=== PATIENT | female | born 1990 | race Caucasian/White ===

== ENCOUNTER 2020-10-16 14:24 | Observation (INO) | payer OTHER, SELFPAY ==
[2020-10-16 14:49] VITALS: BP 104/58; PULSE 89
[2020-10-16 14:55] VITALS: BP 104/58; RESP 14; TEMP 36.8; BMI 33.3
--- NOTE | 2020-10-16 14:57 | OBADM ---
This patient, Kristine Grimes, admitted to the OB room 117 at 1424 for observation post fall. Patient/family oriented to hospital policies and general routines including ID bracelet, bed and alarms, visiting hours, pain management, procedures, bathroom and other care routines, personal items, smoking policy, room service/diet, and visiting hours. Patient/Family are encouraged to report perceived risks to care and to ask questions if they do not understand what they are told or what they should do.
[2020-10-16 15:00] VITALS: BP 106/60; PULSE 96
[2020-10-16 17:04] VITALS: BP 117/69; PULSE 88
[2020-10-16 17:05] VITALS: TEMP 36.9
[2020-10-16] MEDS: TETANUS,DIPHTHERIA,AC PERTUSSIS ADULT (0.5 ML) BOOSTRIX IM (17:38)
--- NOTE | 2020-10-16 17:38 | PC.NURSE ---
Corrie Villalobos CNM informed of 2-3 cxns per hour with uterine irritability- pt feels some as just non painful tightening and others she rates a 3 out of 10. Informed of difficulty assessing uterine activity due to maternal movement to sit up and use her phone. OK to discharge pt as long as she is having 6 or less contractions / hr. Pt to rest today, refrain from intercourse until next office visit, and limit lifting.
--- NOTE | 2020-10-19 07:20 | P.PNOB_ITS ---
OB - Triage/Final Diagnosis Visit Information Date of evaluation: 10/17/20 Reason for evaluation: threatened labor Comments/Additional reasons for admission: I have assessed the risk for this patient, Kristine Juares Cornelio, and determined that she would benefit from ob servation care.
== END 2020-10-16 18:01 | disposition home or self-care (01) ==
PROVIDERS: Admitting Provider Obstetrics & Gynecology; Visit Provider Obstetrics & Gynecology
DX: O47.03 False labor before 37 completed weeks of gestation, third trimester (principal); Z3A.31 31 weeks gestation of pregnancy; Z23 Encounter for immunization
CPT/HCPCS: 90471; 90715; G0378; G0379

== ENCOUNTER 2020-11-05 15:31 | Outpatient (CLI) | payer OTHER, SELFPAY | END 2020-11-05 15:32 | disposition home or self-care (01) | LOC: ANHCOVIDVC 15:31 | DX: Z23 Encounter for immunization (principal) | CPT/HCPCS: 0001A; 91300 ==

== ENCOUNTER 2020-11-26 15:33 | Outpatient (CLI) | payer OTHER, SELFPAY | END 2020-11-26 15:34 | disposition home or self-care (01) | LOC: ANHCOVIDVC 15:34 | DX: Z23 Encounter for immunization (principal) | CPT/HCPCS: 0002A; 91300 ==

== ENCOUNTER 2020-12-08 05:51 | Inpatient (IN) | payer OTHER, SELFPAY ==
[2020-12-08] VITALS (60 sets, daily range): BP systolic 81–128; BP diastolic 37–85; PULSE 64–113; RESP 16; TEMP 36.4–36.9; O2SAT 92–100; BMI 33.7
[2020-12-08 06:51] LABS: Basophils Percent Auto 0.1 % (0.2-1.2); Eosinophils Absolute Auto 0.1 K/mm3 (0-0.3); Eosinophils Percent Auto 0.8 % (0-4.4); Hematocrit 37.9 % (37.0-47.0); Hemoglobin 13.1 g/dL (12.0-15.0); Immature Granulocyte Absolute 0.05 K/mm3 (0.00-0.031); Immature Granulocyte Percent A 0.6 % (0-0.5); Lymphocytes Absolute Auto 2.15 K/mm3 (0.9-3.2); Lymphocytes Percent Auto 23.7 % (18.3-44.2); Mean Corpuscular HGB Conc 34.6 g/dl (32-36); Mean Corpuscular Hemoglobin 32.8 pg (26-34); Mean Corpuscular Volume 94.8 fl (80-100); Mean Platelet Volume 9.9 fl (7.4-10.4); Monocytes Absolute Auto 0.8 K/mm3 (0.1-0.6); Monocytes Percent Auto 9.3 % (2.6-8.5); Neutrophils Absolute Auto 5.9 K/mm3 (1.3-6.7); Neutrophils Percent Auto 65.5 % (45.5-73.1); Platelet Count Result 175 k/mm3 (150-375); Red Cell Distribution Width 12.7 % (11.5-14.5); White Blood Count 9.1 K/mm3 (4.5-10.0)
[2020-12-08] MEDS: LACTATED RINGERS 1,000 ML 125 ML IV CONT ×2 (07:00→10:15)
[2020-12-08] MEDS: AMPICILLIN 2 GM/NS 100 ML 2 GM/100 ML BAG IVPB (07:01)
[2020-12-08] MEDS: OXYTOCIN 30 UNITS/NS 500 ML 30 UNITS/500 ML BAG IV CONT (07:01)
--- NOTE | 2020-12-08 07:16 | LDADM ---
This patient, Kristine Grimes, was admitted to Labor/Delivery/Recovery 106 on 12/08/20 at 05:51. Plans for labor, pain management and were discussed with patient. Patient/family oriented to hospital policies and general routines including ID bracelet, bed and alarms, visiting hours, pain management, procedures, bathroom and other care routines, personal items, smoking policy, room service/diet and guest tray routines, security routines, and visiting hours. Patient/Family are encouraged to report perceived risks to care and to ask questions if they do not understand what they are told or what they should do. See OBIX for further documentation.
--- NOTE | 2020-12-08 08:38 | WPDOBADMIT ---
Obstetrics - Admit Note Admission Note: record reviewed. No pertinent additions to the history and/or any subsequent changes in the physical findings that are not consistent with the expected course of the were found. EIL at 39 weeks, SVE /-2 AROM moderate of clear odorless fluid Additions to the history and/or subsequent changes in the physical findings follow. None.
[2020-12-08] MEDS: fentaNYL CITRATE INJ (*CRX) 100 MCG/2 ML VIAL 50 MCG IV PUSH (09:52)
--- NOTE | 2020-12-08 10:49 | P.PNAN_ITS ---
Anes - Eval Pre Procedure Procedure: Labor Epidural Date/Time: 12/08/20 10:49 Surgeon: Sandy Preop Diagnosis: Labor Pain Pre Op Diagnosis: Induction of Labor Patient Data Age: 30 Gender: F Height: 5 ft 3 in Weight: 86.5 kg Last Vital Signs Temp 36.6 C 12/08/20 09:00 Pulse 97 12/08/20 10:45 BP 97/54 L 12/08/20 10:45 Pulse Ox 100 12/08/20 10:48 Allergies Allergy/AdvReac Type Severity Reaction Status Date / Time No Known Allergies Allergy Verified 10/16/20 14:52 Home Medications Medication Instructions Recorded Confirmed Type PNV cmb#95-ferrous fumarate-FA 1 tablet PO DAILY 10/16/20 12/08/20 History [] Laboratory Tests 12/08/20 12/08/20 12/08/20 06:42 06:42 06:42 WBC 9.1 K/mm3 K/mm3 (4.5-10.0) RBC 4.00 M/mm3 L M/mm3 (4.2-5.4) Hgb 13.1 g/dL g/dL (12.0-15.0) Hct 37.9 % % (37.0-47.0) MCV 94.8 fl fl (80-100) MCH 32.8 pg pg (26-34) MCHC 34.6 g/dl g/dl (32-36) RDW 12.7 % % (11.5-14.5) Plt Count 175 k/mm3 k/mm3 (150-375) MPV 9.9 fl fl (7.4-10.4) Immature Gran % (Auto) 0.6 % H % (0-0.5) Neut % (Auto) 65.5 % % (45.5-73.1) Lymph % (Auto) 23.7 % % (18.3-44.2) Tal[place]ferro % (Auto) 9.3 % H % (2.6-8.5) Eos % (Auto) 0.8 % % (0-4.4) Baso % (Auto) 0.1 % L % (0.2-1.2) Lymph # (Auto) 2.15 K/mm3 K/mm3 (0.9-3.2) Tal[place]ferro # (Auto) 0.8 K/mm3 H K/mm3 (0.1-0.6) Eos # (Auto) 0.1 K/mm3 K/mm3 (0-0.3) Baso # (Auto) 0.0 K/mm3 K/mm3 (0.0-0.1) Abs Immat Gran (auto) 0.05 K/mm3 H K/mm3 (0.00-0.031) Absolute Neuts (auto) 5.9 K/mm3 K/mm3 (1.3-6.7) Absolute Nucleated RBC 0.0 K/mm3 K/mm3 (0.0-0.012) Nucleated RBC % 0.0 % % (0.0-0.2) RPR Pending Blood Type A Positive Antibody Screen Negative : gestational age (SHEREEN 12/15/20, ) Patient hx anesthesia problems: none Family hx anesthesia problems: none PMF Family History Family History Daughter Hearing loss Social History Social History Smoking status: Never smoker Substance use: never Gender identity (if verbalized by the patient): Female Spiritual care concerns: No Exam Day of Procedure 12/08/20 10:49 Patient weight: normal Heart: regular rate and rhythm Lungs: normal air movement Airway: Mallampati scale class II Neurological: alert and oriented
[2020-12-08] MEDS: AMPICILLIN 1 GM/NS 50 ML 1 GM/50 ML BAG IVPB (11:01)
[2020-12-08] MEDS: ONDANSETRON INJ 4 MG/2 ML VIAL IV PUSH (11:13)
[2020-12-08] MEDS: PHENYLEPHRINE 1,000 MCG/10 ML SYRINGE 100 MCG IV PUSH (12:02)
--- NOTE | 2020-12-08 13:27 | PM.OBPRVD ---
OB - Delivery Note Procedure Delivery date: 12/08/20 Procedure: vaginal delivery Induction method: AROM and per pitocin protocol Delivery monitor: external FHT and external uterine Route of delivery: Laceration Description: None Specimen: No Quantitative Blood Loss (ml): 115 Anesthesia type: Epidural Disposition: other () [place] Baby Date of : 12/08/20 Time of : 13:16 Weeks of gestation at delivery: 39 Infant gender: Female presentation: vertex position: Left Occiput Anterior Placenta delivery description: Spontaneous cord vessel description: 3 Vessels and Delayed Cord Clamping score one minute: 9 score five minutes: 9 Narrative: mother and baby skin to skin in stable condition
[2020-12-08] MEDS: OXYTOCIN 30 UNITS/NS 500 ML 30 UNITS/500 ML BAG 125 UNITS IV CONT (13:50)
[2020-12-08] MEDS: WITCH HAZEL 40 PADS 1 PAD TOPICAL (15:57)
[2020-12-09] VITALS: BP 114/70; PULSE 72; RESP 16; TEMP 36.6; O2SAT 99
[2020-12-09] MEDS: IBUPROFEN 600 MG TABLET PO ×4 (00:14→17:58)
[2020-12-09] MEDS: ACETAMINOPHEN 325 MG TABLET 650 MG PO ×4 (00:48→22:37)
[2020-12-09 03:25] VITALS: BP 101/58; PULSE 75; RESP 16; TEMP 36.7; O2SAT 99
[2020-12-09 05:33] LABS: Hemoglobin 12.1 g/dL (12.0-15.0)
[2020-12-09 08:15] VITALS: BP 108/60; PULSE 72; RESP 16; TEMP 36.3; O2SAT 99
[2020-12-09] MEDS: MULTIVIT/MIN/PREN/FOL AC/IRON TABLET 1 TAB PO (08:20)
--- NOTE | 2020-12-09 08:49 | WPDANLDPN2 ---
Anes-Prog Note L&D Date/Time: 12/09/20 08:49 Comfortable throughout: labor and delivery Neuraxial method: epidural Epidural/Spinal procedure site: clean & non-tender Neuro status: Neuro function grossly intact. Cardiovascular status: normal Respiratory status: normal Airway patency: baseline Mental status: baseline Post-Op hydration status: normal Vital Signs: Last Vital Signs Temp 36.7 C 12/09/20 03:25 Pulse 75 12/09/20 03:25 Resp 16 12/09/20 03:25 BP 101/58 L 12/09/20 03:25 Pulse Ox 99 12/09/20 03:25 Pain score (VAS): 08/05 I/O: Intake & Output 12/08/20 12/09/20 12/09/20 23:59 07:59 15:59 Intake Total 500 Output Total 100 Balance 400 Post-procedural complaints: none Patient feedback: Patient satisfied with anesthetic care.
--- NOTE | 2020-12-09 08:57 | PM.OBPNVD ---
OB - PN: Subj Subjective Date/time seen: 12/09/20 08:57 Patient comments: no complaints, pain well controlled, incisional pain, tolerating diet and flatus present OB - PN: Obj Data Labs CBC & Chem 7: 12/09/20 04:31 Labs: Laboratory Results - last 24 hr 12/09/20 04:31 Hgb 12.1 Hct 36.0 L OB - PN A/P Plan day: 1 Plan: routine care Comments: No problems, routine care Time Spent With Patient Time: Total time spent is greater than 50% in coordination of care (as documented) at patient's floor/unit and/or counseling patient: Exam Const: General: comfortable, no acute distress and alert Resp: Effort & Inspection: normal respiratory effort Auscultation: no crackles, no rales and no rhonchi Cardio: Rate: regular rate Heart sounds: no click, no murmurs and no rubs GI: Inspection: non-distended GI Palp: No Tenderness to palpation present (GI) Auscultation: normal bowel sounds Other: Incision - CDI Extrem: General: normal to inspection, no pedal edema and no calf tenderness
[2020-12-09 11:45] VITALS: BP 107/60; PULSE 78; RESP 18; TEMP 36.6; O2SAT 99
--- NOTE | 2020-12-09 16:29 | PC.NURSE ---
Patient instructed on viewing the discharge video Mother & Baby Care, The First Two Weeks . Patient was given the opportunity and encouraged to ask questions. Patient verbalized understanding of information shared and has been given the mother/baby guide for home reference.
[2020-12-09 20:00] VITALS: BP 112/76; PULSE 72; RESP 16; TEMP 36.6; O2SAT 99
[2020-12-10] MEDS: IBUPROFEN 600 MG TABLET PO ×2 (00:25→08:19)
[2020-12-10] MEDS: ACETAMINOPHEN 325 MG TABLET 650 MG PO (04:33)
--- NOTE | 2020-12-10 07:36 | PM.OBPNVD ---
OB - PN: Subj Subjective Date/time seen: 12/10/20 07:36 Patient comments: no complaints baby status: doing well [place] feeding status: breast and bottle feeding OB - PN: Obj Data Labs CBC & Chem 7: 12/09/20 04:31 OB - PN A/P Plan day: 2 Plan: routine care and discharge home Comments: Fu 4 weeks, DC instructions given Time Spent With Patient Time: Total time spent is greater than 50% in coordination of care (as documented) at patient's floor/unit and/or counseling patient: Time with patient: less than 15 minutes Exam Narrative: Exam Narrative: NAD abdomen soft, nontender, fundus firm below the umbilicus Extremities nontender, 1+ edema
--- NOTE | 2020-12-10 07:40 | P.DS_ITS ---
DS: Admitting Diagnosis Admitting Diagnosis Admitting Diagnosis: term induction DS: Discharge Diagnosis Discharge Diagnosis (1) , delivered: Code(s): O80 - Encounter for full-term uncomplicated delivery Status: Acute OB - DS: Summary Hospital Course Hospital Course: Kristine delivered via and her course was uncomplicated. OB Procedures : Ultrasound OB Procedures Intrapartum: Spontaneous Vag Delivery OB Procedures: : None Peripartum Data Delivery Method: Natural Vaginal complications: none Time Spent with Patient Time attestation: Total time spent providing and/or coordinating discharge services: Exam Narrative: Exam Narrative: NAD abdomen soft, appropriately tender Ext non tender, 1+ edema Discharge Plan Discharge Attending physician on discharge: Aminata Mcdowell Discharging Clinician: Aminata Mcdowell Anticipated Discharge Date/Time: 12/10/20 11:00 Patient Disposition: Home, Self-Care Activity: may shower and pelvic rest Diet: as tolerated Patient Instructions: Antibiotic Form Stand Alone Forms: General Discharge Information Follow-up/Referrals: Florencio Delgado MD [Physician] - (4 weeks) Discharge Medications: Continued PNV cmb#95-ferrous fumarate-FA [] 28 mg iron- 800 mcg Tablet 1 tablet PO DAILY RF: 0 Date of admission: 12/08/20 05:51 Primary Care Provider: PHYSICIAN,SEARCH MANAGER Admitting Provider: Florencio Delgado Attending physician on admission: Florencio Delgado Condition: Serious
[2020-12-10 08:00] LABS: Rapid Plasma Reagin Non-Reactive (NonReactive)
[2020-12-10] MEDS: WITCH HAZEL 40 PADS 1 PAD TOPICAL (08:18)
[2020-12-10] MEDS: BENZOCAINE 20% AER SPR (*SP) 56 GM CAN 1 SPRAY TOPICAL (08:18)
[2020-12-10] MEDS: MULTIVIT/MIN/PREN/FOL AC/IRON TABLET 1 TAB PO (08:19)
[2020-12-10] MEDS: DOCUSATE SODIUM 100 MG CAPSULE PO (08:19)
--- NOTE | 2020-12-10 08:45 | PC.NURSE ---
Consult with pt., mother reports she has had difficulties/discomfort with latching. Mother states infant is sleepy for some feedings and does not latch, some feedings will latch shallow with short chewy type suck. Mother will supplement and pump each ineffective feeding. The last few feedings infant has latched with some tenderness. Mother has at breast in a shallow latch, using cradle. Suggested mother break latch and reattempt using cross cradle. Assisted with to breast. Reviewed positioning/alignment cross cradle, holding breast in U hold and guided asymmetrical latch on. was able to latch correctly within a few attempts. nursed eagerly, with steady draws and frequent swallowing noted for short bursts followed with long pausing. Reviewed signs of a correct latch, effective nursing and suck swallow ratio. slipped to shallow latch, with mother reporting tenderness. Demonstrated how to adjust latch more deeply while feeding. Advised to stimulate while feeding to keep awake and nursing effectively for increased intake, increased stimulation to assist with maintaining deep latch. Reviewed infant feeding cues, frequencies, duration of feedings, feeding elimination flow sheet, and signs of adequate intake. Nipple care reviewed. Mother is feeding as required and waking infant to feed if needed. is currently meeting outcomes for weight, output, jaundice and feeding frequencies. Mother states she feels confident to continue effective at home. If does not latch mother will supplement and pump. Reviewed transition to breast milk, signs of adequate intake, and engorgement/relief. Instructed to call ICP if intake/output less than required. Reviewed regular medications mother is taking. Information provided per Antonette. Reviewed community resources on the [facility] website and in the Mom/Baby guide. Information on outpatient services provided. Mother has no further questions at this time.
[2020-12-10 09:15] VITALS: BP 97/60; PULSE 72; RESP 18; TEMP 37; O2SAT 100
--- NOTE | 2020-12-10 09:15 | PC.NURSE ---
PT introductions made and plan of care discussed per post , pain management, breast feeding, daily care activities and pending discharge to home. PT received such instructions per one to one discussion, mom baby care guide and verbalized understanding. NO barriers to learning identified and mom was the sole recipient of such instructions during this shift.
--- NOTE | 2020-12-10 12:11 | PC.NURSE ---
PT discharged to home ambulatory accompanied by spouse and and taken to waiting car. Follow up appts confirmed.
[2020-12-11 09:49] VITALS: BP 113/70; PULSE 85; RESP 20; TEMP 36.6; O2SAT 98
== END 2020-12-10 12:11 | disposition home or self-care (01) | DRG 560 ==
LOC: ANHLDR 06:11 → ANHOB2 12-10 07:40 → ANHLDR 12-11 12:27 → ANHOB2 12-11 12:27
PROVIDERS: Advanced Practice Midwife; Admitting Provider Obstetrics & Gynecology; Visit Provider Obstetrics & Gynecology
DX: O99.824 Streptococcus B carrier state complicating childbirth (principal); Z37.0 Single live birth; Z3A.39 39 weeks gestation of pregnancy
CPT/HCPCS: 36415; 85014; 85018; 85025; 86592; 86850; 86900; 86901; A9270; J0290; J2370; J2405; J2590; J2795; J3010; J7120

== ENCOUNTER 2020-12-17 14:14 | Emergency (ER) | payer OTHER, SELFPAY ==
[2020-12-17 14:19] VITALS: BP 123/86; PULSE 73; RESP 16; TEMP 36.7; O2SAT 100
[2020-12-17 14:29] VITALS: BP 123/86; PULSE 73; RESP 16; TEMP 36.6; O2SAT 100
[2020-12-17] MEDS: SODIUM CHLORIDE 0.9% IV 1,000 ML 999 ML IV CONT (16:21)
--- NOTE | 2020-12-17 16:24 | ED_ITS ---
HPI - Headache General Chief Complaint: Headache Stated Complaint: 1 weeks , headache Time Seen by Provider: 12/17/20 14:34 Source: patient Mode of arrival: ambulatory Limitations: no limitations History of Present Illness HPI Narrative: Patient is a 30 year old female who presents with headache. She reports she is 1 week 2 days post with non complicatd delivery. She is currently . She reports headaches for the past week with some 10/10 and episodes of blurred vision. She denies headache at this time. Reports a history of migraines in the past in which she was prescribed sumatriptan. She reports she did not take sumatriptan because she did not like how it made her feel. She denies nausea, vomiting or other complaints at this time. Related Data Home Medications Medication Instructions Recorded Confirmed PNV cmb#95-ferrous fumarate-FA 1 tablet PO DAILY 10/16/20 12/08/20 [] Allergies Allergy/AdvReac Type Severity Reaction Status Date / Time No Known Allergies Allergy Verified 10/16/20 14:52 [facility] Family History Family History Daughter Hearing loss Social History Social History Smoking status: Never smoker Substance use: never Gender identity (if verbalized by the patient): Female Spiritual care concerns: No Course Vital Signs Vital signs: Vital Signs Temperature 36.7 C 12/17/20 14:19 Pulse Rate 73 12/17/20 14:19 Respiratory Rate 16 12/17/20 14:19 Blood Pressure 123/86 12/17/20 14:19 Pulse Oximetry 100 12/17/20 14:19 Temperature 36.6 C 12/17/20 14:29 Pulse Rate 73 12/17/20 14:29 Respiratory Rate 16 12/17/20 14:29 Blood Pressure 123/86 12/17/20 14:29 Pulse Oximetry 100 12/17/20 14:29 MDM - Headache MDM Narrative Medical decision making narrative: Patients labs are unremarkable. Patient denies headache at this time. Patient to stay well hydrated and follow up with OBGYN for post exams as scheduled. Patient encouraged to speak with OBGYN of migraines and . Patient is stable for discharge to home with outpatient follow up as discussed. Differential Diagnosis Differential diagnosis: Likely migraine, tension headache, subarachnoid hemorrhage and headache Medical Records Attestation: I reviewed the patient's medical records. Lab Data Attestation: I reviewed the patient's lab results. Critical Care Time Critical Care Time Critical Care Time: No Discharge Plan Discharge Clinical Impression: Headache Patient Disposition: Home, Self-Care Condition: Stable Instructions: Acute Headache (ED) Additional Instructions: Stay well hydrated, you may take Tylenol for headaches as directed. Follow up with OBGYN for post checkup as scheduled. Prescriptions: No Action PNV cmb#95-ferrous fumarate-FA [] 28 mg iron- 800 mcg Tablet 1 tablet PO DAILY RF: 0 Follow-up/Referrals: Mayito,MD Maicol [Primary Care Provider] -
[2020-12-17 16:28] LABS: Basophils Percent Auto 0.2 % (0.2-1.2); Eosinophils Absolute Auto 0.1 K/mm3 (0-0.3); Eosinophils Percent Auto 1.8 % (0-4.4); Hematocrit 44.3 % (37.0-47.0); Immature Granulocyte Absolute 0.01 K/mm3 (0.00-0.031); Immature Granulocyte Percent A 0.2 % (0-0.5); Lymphocytes Absolute Auto 2.38 K/mm3 (0.9-3.2); Lymphocytes Percent Auto 43.4 % (18.3-44.2); Mean Corpuscular HGB Conc 33.9 g/dl (32-36); Mean Corpuscular Hemoglobin 32.3 pg (26-34); Mean Corpuscular Volume 95.5 fl (80-100); Mean Platelet Volume 8.9 fl (7.4-10.4); Monocytes Absolute Auto 0.4 K/mm3 (0.1-0.6); Monocytes Percent Auto 6.6 % (2.6-8.5); Neutrophils Absolute Auto 2.6 K/mm3 (1.3-6.7); Neutrophils Percent Auto 47.8 % (45.5-73.1); Platelet Count Result 194 k/mm3 (150-375); Red Blood Count 4.64 M/mm3 (4.2-5.4); Red Cell Distribution Width 12.1 % (11.5-14.5); White Blood Count 5.5 K/mm3 (4.5-10.0)
[2020-12-17 16:44] LABS: Alanine Aminotransferase 86 U/L (4-35); Albumin Level 4.2 g/dL (3.5-5.1); Alkaline Phosphatase 106 U/L (38-126); Anion Gap 3 mmol/L (8-16); Aspartate Amino Transferase 38 U/L (14-36); Bilirubin,Total 0.5 mg/dL (0.2-1.3); Blood Urea Nitrogen 13 mg/dL (7-17); Calcium 8.8 mg/dL (8.4-10.2); Carbon Dioxide 25 mmol/L (22-30); Chloride 108 mmol/L (98-107); Estimated CRCL calculation 117 ml/min; Estimated Glomerular Filt Rate > 60; Glucose 77 mg/dL (65-105); Potassium 4.3 mmol/L (3.4-5.0); Sodium 136 mmol/L (137-145)
== END 2020-12-17 17:40 | disposition home or self-care (01) ==
PROVIDERS: Emergency Provider Nurse Practitioner; PCP Internal Medicine
DX: O90.89 Other complications of the puerperium, not elsewhere classified (principal); R51.9 Headache, unspecified
CPT/HCPCS: 36415; 80053; 85025; 96361; 96374; 99284; J0131; J7030

== ENCOUNTER 2021-05-14 13:51 | Outpatient (CLI) | payer OTHER, SELFPAY ==
--- NOTE | ~2021-05-14 | US_ITS ---
US breast RT limited DATE: 05/14/2021 14:24 INDICATION: Right breast lump for 2 weeks TECHNIQUE: Targeted ultrasound examination was performed at the area of clinical complaint at 4:00 ne ar the nipple. COMPARISON: None FINDINGS: No suspicious mass or shadowing is detected. No cyst or other significant sonographic findi ng is noted. IMPRESSION: BI-RADS Category 1: Negative Reviewed, dictated and finalized at [facility]. Reviewed, dictated and finalized at location A.
== END 2021-05-14 13:52 | disposition home or self-care (01) ==
LOC: ANHIMG 13:55
PROVIDERS: PCP Internal Medicine; Visit Provider Nurse Practitioner Obstetrics & Gynecology
DX: N63.10 Unspecified lump in the right breast, unspecified quadrant (principal)
CPT/HCPCS: 76642

== ENCOUNTER 2021-06-06 16:12 | Emergency (ER) | payer OTHER, SELFPAY ==
--- NOTE | ~2021-06-06 | CT_ITS ---
EXAMINATION: CT brain wo con EXAM DATE: 06/06/2021 20:18 INDICATION: Head injury with drainage. TECHNIQUE: Spiral CT of the head was performed without contrast. Axial, coronal and sagittal images were reviewed. The dose-length product (DLP) for this examination was 529.67 mGy-cm. The exposure w as tailored according to patient size, and iterative reconstruction (ASIR) was used as additional dos e reduction technique. There is no prior study for comparison. FINDINGS: There is no acute intraparenchymal hemorrhage. No evidence of intraparenchymal brain mass lesion. No evidence of acute infarction. There is no mass effect or midline shift. The ventricles are normal in size. There are no extra-axial collections. There are no acute calvarial fractures. T he orbits are unremarkable. Soft tissue is unremarkable. The visualized sinuses and mastoid air jeny ls are well aerated. IMPRESSION: 1. Unremarkable head CT examination. Reviewed, dictated and finalized at location [facility]. SALVAGE WORKER
[2021-06-06 16:23] VITALS: BP 116/80; PULSE 89; RESP 18; TEMP 36.2; O2SAT 100
[2021-06-06 20:37] VITALS: BP 120/73; PULSE 80; RESP 20; O2SAT 97
--- NOTE | 2021-06-06 20:49 | ED.GENADULT ---
HPI - General Adult General Chief complaint: Head Injury Stated complaint: hit my head & have clear fluid coming from nose Time Seen by Provider: 06/06/21 18:50 Related Data Home Medications Medication Instructions Recorded Confirmed PNV cmb#95-ferrous fumarate-FA 1 tablet PO DAILY 10/16/20 12/08/20 [] Allergies Allergy/AdvReac Type Severity Reaction Status Date / Time No Known Allergies Allergy Verified 06/06/21 19:05 Review of Systems Review of Systems: CONSTITUTIONAL: Denies fever, chills, or sweats. EYES: Denies visual changes, redness, or discharge. ENT: Reports rhinorrhea denies congestion, sore throat, or otalgia. CARDIOVASCULAR: Denies chest pain, palpitations, or edema. RESPIRATORY: Denies cough or dyspnea. GASTROINTESTINAL: Denies abdominal pain, nausea, vomiting, or diarrhea. GENITOURINARY: Denies dysuria or hematuria. SKIN: Denies rash or itching. MUSCULOSKELETAL: Denies back pain, joint pain, or myalgia. NEUROLOGIC: Denies headache, numbness, dizziness, or weakness. PSYCHIATRIC: Denies anxiety or depression. [facility] Family History Family History Daughter Hearing loss Social History Social History Smoking status: Never smoker Substance use: never Gender identity (if verbalized by the patient): Female Spiritual care concerns: No Exam Narrative: GENERAL: Well-appearing, well-nourished, and in no acute distress. HEAD: Normocephalic, atraumatic. No hematomas or tenderness or other signs of injury. EYES: PERRLA and EOMI. ENT: Nares clear, no rhinorrhea or epistaxis. Mucous membranes moist. Oropharynx without tonsillar hypertrophy exudate or other lesions. Bilateral TMs pearly hammonds nonbulging. No drainage noted. NECK: Supple. No adenopathy or masses. Range of motion intact CHEST: Clear to auscultation. No respiratory distress. No wheezes rales or rhonchi HEART: Regular rate and rhythm. No murmur heard. Normal peripheral pulses. EXTREMITIES: Normal range of motion. No edema. SKIN: Warm, dry, no rash. NEURO: No focal deficits. Alert and oriented x3. PSYCH: Normal mood and affect. Course Vital Signs Vital signs: Vital Signs Temperature 97.2 F L 06/06/21 16:23 Pulse Rate 89 06/06/21 16:23 Respiratory Rate 18 06/06/21 16:23 Blood Pressure 116/80 06/06/21 16:23 Pulse Oximetry 100 06/06/21 16:23 Temperature 97.2 F L 06/06/21 16:23 Pulse Rate 80 06/06/21 20:37 Respiratory Rate 20 06/06/21 20:37 Blood Pressure 120/73 06/06/21 20:37 Pulse Oximetry 97 06/06/21 20:37 Medical Decision Making MDM Narrative Medical decision making narrative: Patient's head CT clean. Patient did not have headache. Patient did not have neurological deficits. Patient instructed to follow-up primary care if she has any additional questions or concerns. Patient strict return to ER if he has any emergent symptoms Vital Signs Vital Signs: Vital Signs Temperature 97.2 F L 06/06/21 16:23 Pulse Rate 89 06/06/21 16:23 Respiratory Rate 18 06/06/21 16:23 Blood Pressure 116/80 06/06/21 16:23 Pulse Oximetry 100 06/06/21 16:23 Temperature 97.2 F L 06/06/21 16:23 Pulse Rate 80 06/06/21 20:37 Respiratory Rate 20 06/06/21 20:37 Blood Pressure 120/73 06/06/21 20:37 Pulse Oximetry 97 06/06/21 20:37 Imaging Data Radiologist's impression: ITS Impressions Head CT 06/06/21 20:32 IMPRESSION: 1. Unremarkable head CT examination. Discharge Plan Discharge Clinical Impression: Nasal drainage Head injury Qualifiers: Encounter type: initial encounter Qualified Code(s): S09.90XA - Unspecified injury of head, initial encounter Patient Disposition: Home, Self-Care Condition: Improved Instructions: Antibiotic Form, Head Injury (ED) Additional Instructions: Follow-up with your primary care if y
[2021-06-06 21:33] VITALS: BP 109/64; PULSE 81; RESP 16; O2SAT 100
== END 2021-06-06 21:36 | disposition home or self-care (01) ==
PROVIDERS: Emergency Provider Emergency Medicine; PCP Internal Medicine
DX: S09.90XA Unspecified injury of head, initial encounter (principal); J34.89 Other specified disorders of nose and nasal sinuses; W22.8XXA Striking against or struck by other objects, initial encounter
CPT/HCPCS: 70450; 99284

== ENCOUNTER 2021-07-31 13:57 | Outpatient (CLI) | payer OTHER, SELFPAY ==
--- NOTE | 2021-08-06 11:57 | WPDHOLTEREM ---
Holter/Event Monitor Holter/Event Monitor Date of procedure: 07/31/21 Holter/Event Procedure: 24 Hr Holter Monitor Indications: Palpitations Conclusion: 1. 24 hour holter monitor on 07/31/21. 2. Underlying rhythm is sinus rhythm. HR range 52-140 bpm; average HR 84 bpm. 3. There are 3 premature supraventricular complexes. No supraventricular tachycardia. 4. No premature ventricular complexes. No ventricular tachycardia. 5. No sinoatrial or atrioventricular blocks. No significant pauses greater than 2 seconds. 6. No symptoms available for correlation.
== END 2021-07-31 13:58 | disposition home or self-care (01) ==
PROVIDERS: PCP Internal Medicine; Visit Provider Advanced Practice Midwife
DX: R00.2 Palpitations (principal)
CPT/HCPCS: 93225; 93226

== ENCOUNTER 2023-05-19 10:33 | Emergency (ER) | payer OTHER, MEDICAID, SELFPAY ==
--- NOTE | ~2023-05-19 | XR_ITS ---
Clinical Indication: Cough PA and lateral views of the chest: Comparison: None Findings: The lungs are clear, without evidence of focal consolidation or pleural effusion. Cardiome diastinal silhouette is within normal limits. Bones and soft tissues are unremarkable. Impression: Normal chest. Reviewed, dictated and finalized at location . Impression: Normal chest.
[2023-05-19 10:37] VITALS: BP 101/71; PULSE 100; RESP 20; TEMP 37; O2SAT 99
--- NOTE | 2023-05-19 10:53 | ED.GENADULT ---
HPI - General Adult General Chief complaint: Upper Respiratory Infection Stated complaint: Cough/Chest Congestion Source: patient Mode of arrival: ambulatory Limitations: no limitations History of Present Illness HPI narrative: Patient presents for evaluation of cough for the last 3 weeks. She states cough is intermittently productive. She has some mild shortness of breath, sore throat from frequent coughing and chills. No fevers, vomiting, diarrhea. Her children all currently have respiratory symptoms. She went to another urgent care last week for the same symptoms. She indicates no diagnostic testing was performed. She was treated with prednisone for 5 days which she completed this past weekend. She does not smoke. She tried taking some [id number] medication without considerable improvement in her symptoms thereafter. Related Data Home Medications Medication Instructions Recorded Confirmed atorvastatin 10 mg tablet 10 mg PO DAILY 05/19/23 05/19/23 escitalopram oxalate 10 mg tablet 10 mg PO DAILY 05/19/23 05/19/23 hydroxyzine HCl 25 mg tablet 25 mg PO TID PRN Anxiety 05/19/23 05/19/23 Allergies Allergy/AdvReac Type Severity Reaction Status Date / Time No Known Allergies Allergy Verified 05/19/23 10:46 Review of Systems Review of Systems: CONSTITUTIONAL: Reports chills. Denies fever or sweats. EYES: Denies visual changes, redness, or discharge. ENT: Reports sore throat. Denies rhinorrhea, congestion, or otalgia. CARDIOVASCULAR: Denies chest pain, palpitations, or edema. RESPIRATORY: Reports cough and mild SOB GASTROINTESTINAL: Denies abdominal pain, vomiting, or diarrhea. GENITOURINARY: Denies dysuria or hematuria. SKIN: Denies rash or itching. MUSCULOSKELETAL: Denies back pain, joint pain, or myalgia. NEUROLOGIC: Denies headache, numbness, dizziness, or weakness. PSYCHIATRIC: Denies anxiety or depression. [facility] Past Medical History Medical History No pertinent past medical history Surgical History Surgical History No pertinent past surgical history Family History Family History Daughter Hearing loss Social History Social History (Updated 05/19/23 @ 11:01 by Boone Velarde, [facility], ) Smoking status: Never smoker Substance use: never Living arrangements: with family Gender identity (if verbalized by the patient): Female Sexual Orientation (if Verbalized by the Patient): Straight or Heterosexual Spiritual care concerns: No Exam Narrative: GENERAL: Well-appearing, well-nourished, and in no acute distress. HEAD: Normocephalic, atraumatic. EYES: PERRLA and EOMI. ENT: Nares clear, no rhinorrhea or epistaxis. Mucous membranes moist. Oropharynx without tonsillar hypertrophy exudate or other lesions. Bilateral TMs pearly hammonds nonbulging NECK: Supple. No adenopathy or masses. No carotid bruits or JVD CHEST: Mild wheezing noted in bilateral lung de la fuente posteriorly HEART: Regular rate and rhythm. No murmur heard. Normal peripheral pulses. ABDOMEN: Soft, nontender, nondistended, normal active bowel sounds. EXTREMITIES: Normal range of motion. No edema. SKIN: Warm, dry, no rash. NEURO: No focal deficits. Alert and oriented x3. PSYCH: Normal mood and affect. Course Course Emergency Course: This is a 32-year-old female who presented for evaluation of cough. Chest x-ray was negative. Exam is consistent with viral URI. She recently completed steroid burst therapy. Will place on to her with Mucinex DM for symptom management. Follow up with primary provider to determine whether additional diagnostic testing clinically warranted including but not limited to CT scan of the chest or pulmonary function test. Go to the ER for worsening symptoms. Pt in agreement with plan of care. Level of Care:
== END 2023-05-19 11:30 | disposition home or self-care (01) ==
PROVIDERS: Emergency Provider Nurse Practitioner; PCP Family Medicine
DX: J06.9 Acute upper respiratory infection, unspecified (principal)
CPT/HCPCS: 71046; 99213; G0463